=== PATIENT | female | born 1985 | race Caucasian/White ===

== ENCOUNTER 2024-02-11 17:37 | Emergency (ER) | payer OTHER, SELFPAY ==
[2024-02-11 17:54] VITALS: BP 145/101; PULSE 106; RESP 20; TEMP 36.1; O2SAT 96; BMI 46.8
--- NOTE | 2024-02-11 17:56 | ED.GENADULT ---
HPI - General Adult General Chief complaint: Vaginal Bleeding Stated complaint: ? uti/diabetic Time Seen by Provider: 02/11/24 20:22 Source: patient Limitations: no limitations History of Present Illness ED Provider: Carmen Owusu PA-C HPI narrative: Patient is a 38 year old female with a history of T2DM who presents today with vaginal bleeding and a sore throat. Patient has had mild abdominal cramping and vaginal irritation x1 week and today passed a large and abnormal blood clot. She states that her urine has a strong smell to it and that she has a history of recurrent yeast infections and UTIs. Her LMP was 4.5 weeks ago. She denies discharge, odor, and any worsening symptoms. Patient is abstinent and states that she is not . Patient also mentions a sore throat and increased mucus x1 week as well. She states that she is fatigued and has had recurrent headaches, nausea, and some dizzy spells. She had sick contacts preceding these symptoms. She denies cough, SOB, and fevers. Related Data Allergies Allergy/AdvReac Type Severity Reaction Status Date / Time Sulfa (Sulfonamide Allergy Rash Verified 02/11/24 17:59 Antibiotics) Review of Systems Review of Systems: Yes all other systems are reviewed and are negative Constitutional: Constitutional: Reports as per HPI, Denies chills, Reports fatigue, Denies fever(s) and Reports headache(s) ENT: Denies dysphagia, Reports dizziness, Reports headache(s), Denies mouth lesions, Reports post nasal drip and Reports sore throat Cardiovascular: Cardiovascular: Denies chest pain, Denies syncope, Denies palpitations and Denies dyspnea Respiratory: Respiratory: Denies cough and Denies dyspnea Gastrointestinal: Gastrointestinal: Denies abdominal pain, Denies change in bowel habits, Denies dysphagia, Denies nausea and Denies vomiting Genitourinary: Genitourinary: Denies dysuria, Denies urinary incontinence, Denies urinary urgency and Denies vaginal odor Musculoskeletal: Musculoskeletal: Denies abnormal gait Neurologic: Denies abnormal gait, Denies behavioral changes, Reports dizziness, Denies syncope, Reports headache(s) and Denies memory loss Psychiatric: Psychiatric: Denies behavioral changes and Denies memory loss Endocrine: Endocrine: Reports fatigue and Denies palpitations PMFSH Social History Social History Smoked in Last 30 Days: No Use of substances other than those prescribed or required for medical reasons: Yes Substance Use Type: Marijuana Substance Use Frequency: Daily Advance Directives: No Advance Directives Information Provided: Yes Do you have a plan to hurt others: No Plan Patient : No Physical Exam ED Vital Signs: Vital Signs - 24 hr 02/11/24 17:54 02/11/24 20:10 Temperature 97.0 F 97.3 F Pulse Rate 106 H 106 H Respiratory Rate 20 18 Blood Pressure 145/101 H 129/79 Pulse Oximetry 96 95 Oxygen Delivery Method Room Air Room Air BMI result Body Mass Index 46.8 Const General: cooperative and comfortable Nutritional Appearance: obese Orientation/consciousness: patient oriented x3 HENMT Head: Yes normal to inspection, Yes normocephalic and Yes atraumatic Mouth: moist mucous membranes, no audible dysphonia, no drooling and breath no malodorous Throat: Yes tonsils normal and Yes uvula midline Resp Effort & Inspection: normal respiratory effort and able to speak in complete sentences Auscultation: clear to auscultation bilaterally Cardio Jugular venous distension: no JVD Rate: regular rate Rhythm: regular rhythm Heart sounds: S1 normal heart sound present and S2 normal heart sound present Other: Viet Owusu PA-C performed the pelvic exam. Normal external genitalia, scant amount of white opaque discharge noted in vaginal canal, no CMT, no bleeding per us, the external tissues surrounding the vulva and labia do appear chafed External Female Exam: erythema Speculum Exam - Vagina: abnormal vaginal discharge and No vaginal bleeding Speculum Exam - Cervix: normal appearance of the cervix OB/external & speculum: No vaginal bleeding Skin Other: warm and dry, no rash Neuro General: patient oriented x3, moves all extremities, No no focal motor deficits and CN's II-XI intact bilaterally Cranial nerves: Yes CN's II-XII intact bilaterally and Yes Bilaterally intact EOM present Psych Appearance: grossly normal Course Course Course Narrative: RME, this is a rapid medical exam performed by Dez Ackerman please refer to primary provider for complete H&P- 38 year old female with history of type 2 diabetes, hydradinitis, presents for evaluation of dysuria and sore throat. Symptoms started 5 days ago. She also endorses bloody urine with clots. Plan for labs, UA, strep swab Medical Decision Making Medical Decision Making MDM Narrative: Viet Owusu PA-C personally assessed and managed the patient, Bria MICHELLE helped to formulate the note. Patient is a 38 year old female with a history of unmedicated T2DM who presents today with vaginal bleeding and a sore throat. Patient has had mild abdominal cramping and vaginal irritation x1 week and today passed a large and abnormal blood clot. She states that her urine has a strong smell to it and that she has a history of recurrent yeast infections and UTIs. Her LMP was 4.5 weeks ago. She denies discharge, odor, and any worsening symptoms. Patient is abstinent and states that she is not . Patient also mentions a sore throat and increased mucus x1 week as well. She states that she is fatigued and has had recurrent headaches, nausea, and some dizzy spells. She had sick contacts preceding these symptoms. She denies cough, SOB, and fevers. Patient has a history of T2DM, HS, and recurrent UTIs and yeast infections. Current medications include Spironolactone and concentrix. Differential diagnoses: yeast infection, UTI, kidney infection, bacterial vaginosis, , bacterial/viral pharyngitis, thrush, COVID, flu, RSV UTI and kidney infection were considered, however this presentation is atypical as patient does not have increased urge to urinate, dysuria, systemic or worsening symptoms. UA results also rule this diagnosis out. Thought about BV, however patient states there is no odor, and UA reveals that this is not the cause. As the patient has been abstinent and the test was negative, patient is not . I considered COVID/flu/RSV, however, the serology panel was negative for all three. Also considered was bacterial pharyngitis, however, patients symptoms are not consistent with this and CBC does not reveal infection. On exam, patient has vaginal irritation and discharge consistent with a yeast infection. Because of the physical exam and the history of recurrent yeast infections, I believe this is the likely diagnosis. As the serology panel was negative and patient has viral symptoms, I believe she also has viral pharyngitis. Per Carmen Owusu PA-C Plan: In regard to the patient's sore throat complaint, she has viral pharyngitis. She has postnasal drip irritating her throat, she was screened for strep, it was negative. There was no evidence of peritonsillar abscess on exam. In regard to her urinary complaint, she does not have a UTI. She was expressing she is passing clot from her urethra, however she does not have gross hematuria on urinalysis. I do believe this is the beginning of her menstrual cycle, the clots that she has been passing it is likely vaginal. Patient can follow up with her primary care provider as needed. She admits to not being sexually active, hCG was not obtained. I have independently reviewed the following tests: Labs: No leukocytosis, not anemic, urine not infected, strep screen negative Lab Data 02/11/24 19:57 02/11/24 19:56 Labs: Lab Results 02/11/24 02/11/24 Range/Units 19:56 19:57 WBC 9.0 (4.8-10.8) X10*3/uL RBC 4.81 (4.20-5.50) X10*6/uL Hgb 14.7 (12.0-16.0) g/dl Hct 43.1 (37.0-47.0) % MCV 89.6 (80.0-98.0) fL MCH 30.6 (27.0-33.0) pg MCHC 34.1 (31.0-35.0) g/dl RDW 12.8 (11.0-16.0) % Plt Count 235 (160-400) X10*3/uL MPV 9.6 (9.4-12.3) fL Immature Gran % (Auto) 0.2 (0.0-0.4) % Neut % (Auto) 55.5 (45-73) % Lymph % (Auto) 34.3 (20-40) % [place] % (Auto) 6.0 (2-11) % Eos % (Auto) 3.2 (0-4) % Baso % (Auto) 0.8 (0-2) % Lymph # (Auto) 3.1 (1.2-4.9) X10*3/uL [place] # (Auto) 0.5 (0.1-1.2) X10*3/uL Eos # (Auto) 0.3 (0.0-0.4) X10*3/uL Baso # (Auto) 0.1 (0.0-0.2) X10*3/uL Abs Immat Gran (auto) 0.02 (0.00-0.03) X10*3/uL Absolute Neuts (auto) 5.0 (2.0-8.3) x10*3/uL Absolute Nucleated RBC 0.000 (0.0-0.012) X10*3/uL Nucleated RBC % (auto) 0.0 (0.0-0.2) /100WBC PT 11.6 (10.9-12.4) SEC INR 1.0 (0.9-1.1) Sodium 136 (135-145) mmol/L Potassium 4.2 (3.3-5.1) mmol/L Chloride 102 (96-108) mmol/L Carbon Dioxide 26 (22-29) mmol/L Anion Gap 12 (12-20) BUN 9 (9-16) mg/dL Creatinine 0.82 (0.5-1.4) mg/dL Estim Creat Clear Calc 141.4 Estimated GFR > 60 Random Glucose 342 H (60-115) mg/dL Calcium 9.2 (8.4-10.2) mg/dL Total Bilirubin 0.4 (0.0-1.0) mg/dL AST 24 (5-31) U/L ALT 18 (0-31) U/L Alkaline Phosphatase 62 (39-117) U/L Total Protein 8.3 H (6.5-8.0) g/dL Albumin 3.6 (3.5-5.0) g/dL Lipase 16 (8-78) U/L Urine Color Yellow Urine Appearance Clear Urine pH 6.0 (5.0-9.0) Ur Specific [place] >= 1.030 H (1.005-1.025) Urine Protein Negative (Neg-Trace) mg/dL Urine Glucose (UA) >=1000 H (Negative) mg/dL Urine Ketones Trace (Negative) mg/dL Urine Blood Negative (Negative) Urine Nitrite Negative (Negative) Ur Leukocyte Esterase Trace H (Negative) Urine RBC 0-2 (0-2) /HPF Urine WBC 11-20 H (0-5) /HPF Ur Squamous Epith Cells 11-20 (0-2) /HPF Urine Bacteria 4+ (None Seen) Hyaline Casts 0-2 (0-2) /LPF S. pyogenes GrpA BLUE Negative (Negative) Discharge Plan Discharge Clinical Impression: Acute viral pharyngitis, Yeast infection Patient Disposition: Home, Self-Care Instructions: Pharyngitis (ED), Yeast Infection (ED) Additional Instructions: Overall, all of your labs were normal, you do not have a urinary tract infection, you are not passing a large amount of blood in your urine, you tested negative for strep throat. You have what is called a viral sore throat. See home care instructions. You also were found to have a yeast infection, see home care instructions. You were given a 1 time medication called Diflucan, this will take care of the yeast infection. You can use [id number] yeast infection creams to help soothe your skin. Follow up with your primary care provider as needed. Print Language: Kazakh
[2024-02-11 20:08] LABS: MANUAL DIFF FLAG NO
[2024-02-11 20:09] LABS: Basophils Absolute Auto 0.1 X10*3/uL (0.0-0.2); Basophils Percent Auto 0.8 % (0-2); Eosinophils Absolute Auto 0.3 X10*3/uL (0.0-0.4); Eosinophils Percent Auto 3.2 % (0-4); Hematocrit 43.1 % (37.0-47.0); Hemoglobin 14.7 g/dl (12.0-16.0); Imm Gran Abs Auto 0.02 X10*3/uL (0.00-0.03); Imm Gran Pct Auto 0.2 % (0.0-0.4); Lymphocytes Absolute Auto 3.1 X10*3/uL (1.2-4.9); Lymphocytes Percent Auto 34.3 % (20-40); Mean Corpuscular HGB Conc 34.1 g/dl (31.0-35.0); Mean Corpuscular Hemoglobin 30.6 pg (27.0-33.0); Mean Corpuscular Volume 89.6 fL (80.0-98.0); Mean Platelet Volume 9.6 fL (9.4-12.3); Monocytes Absolute Auto 0.5 X10*3/uL (0.1-1.2); Neutrophils Percent Auto 55.5 % (45-73); Platelet Count 235 X10*3/uL (160-400); Red Blood Count 4.81 X10*6/uL (4.20-5.50); Red Cell Distribution Width 12.8 % (11.0-16.0)
[2024-02-11 20:10] VITALS: BP 129/79; PULSE 106; RESP 18; TEMP 36.3; O2SAT 95
[2024-02-11 20:10] LABS: Appearance Urine Clear; Color Urine Yellow; Glucose Urine UA >=1000 mg/dL (Negative); Leukocyte Esterase Urine Trace (Negative); Nitrite Urine Negative (Negative); Specific Gravity - Urine >= 1.030 (1.005-1.025); UMIC TRIGGER UACC YES; Urine Blood Negative (Negative); Urine Ketones Trace mg/dL (Negative); Urine Protein Negative (Neg-Trace)
[2024-02-11 20:13] LABS: Bacteria Urine 4+ (None Seen); Hyaline Casts Urine 0-2 /LPF (0-2); RBC Urine 0-2 /HPF (0-2); UACC Culture Trigger YES
[2024-02-11 20:18] LABS: Prothrombin Time 11.6 SEC (10.9-12.4)
[2024-02-11 20:19] LABS: IDNOW Serial# 58CA691E; Strep A Nucleic Acid Negative (Negative)
[2024-02-11 20:38] LABS: Alanine Aminotransferase 18 U/L (0-31); Albumin Level 3.6 g/dL (3.5-5.0); Alkaline Phosphatase 62 U/L (39-117); Anion Gap 12 (12-20); Aspartate Amino Transferase 24 U/L (5-31); Bilirubin Total 0.4 mg/dL (0.0-1.0); Blood Urea Nitrogen 9 mg/dL (9-16); Calcium 9.2 mg/dL (8.4-10.2); Carbon Dioxide 26 mmol/L (22-29); Chloride 102 mmol/L (96-108); Creatinine Clr Calc Pharmacy 141.4; Estimated Glomerular Filt Rate > 60; Glucose Random 342 mg/dL (60-115); Lipase 16 U/L (8-78); Potassium 4.2 mmol/L (3.3-5.1); Sodium 136 mmol/L (135-145); Total Protein 8.3 g/dL (6.5-8.0)
[2024-02-11] MEDS: Fluconazole 100 MG TABLET 200 MG PO (22:23)
[2024-02-11 22:29] VITALS: BP 129/79; PULSE 106; RESP 18; TEMP 36.3; O2SAT 95
== END 2024-02-11 22:30 | disposition home or self-care (01) ==
PROVIDERS: Physician Assistant; Emergency Provider Emergency Medicine; PCP Nurse Practitioner Community Health
DX: J02.8 Acute pharyngitis due to other specified organisms (principal); N93.9 Abnormal uterine and vaginal bleeding, unspecified; B37.31 Acute candidiasis of vulva and vagina; R10.2 Pelvic and perineal pain; E11.9 Type 2 diabetes mellitus without complications; Z79.899 Other long term (current) drug therapy
CPT/HCPCS: 80053; 81001; 83690; 85025; 85610; 87086; 87088; 87186; 87651; 99283; 99284